=== PATIENT | female | born 1935 | race Caucasian/White ===

== ENCOUNTER → 2022-02-13 | Outpatient (CLI) | payer MEDICARE, OTHER ==
[~2022-02-13] MED LIST: ASPIRIN 325MG325 MG PO; BACTRIM DS TAB1 EACH PO; DEPRESSION; HUMALOG MI100 UNIT/4 SQ; IBUPROFEN800 MG PO; LEVAQUIN500 MG PO; SEROQUEL25 MG PO
== END ==
LOC: US 13:26
PROVIDERS: Internal Medicine Nephrology
DX: N17.9 Acute kidney failure, unspecified (principal); N39.0 Urinary tract infection, site not specified
CPT/HCPCS: 36415; 80053; 82570; 84156